=== PATIENT | female | born 1965 | race Caucasian/White ===

== ENCOUNTER 2020-07-20 15:00 | Emergency (ER) | payer OTHER ==
[~2020-07-20 15:00] MED LIST: ADVAIR 500-501 EACH INH; AMLODIPINE BESYL5 MG PO; ATORVASTATIN CA40 MG PO; BIOTIN2500 MCG PO; BUSPIRONE HCL15 MG PO; COLACE 100MG C100 MG PO; COMBIVENT RESPIM4 GM INH; DULOXETINE HCL60 MG PO; FENOFIBRATE160 MG PO; GLIMEPIRIDE4 MG PO; HYDROCHLOROTHIA25 MG PO; IBUPROFEN600 MG PO; JANUVIA100 MG PO; LISINOPRIL2.5 MG PO; NORCO 5-325 TA1 EACH PO; NORETHINDRONE AC5 MG PO; ONE A DAY VITAMIN PO; RANITIDINE HCL150 MG PO; SINGULAIR10 MG PO; SYMBICORT 16010.2 GM INH; TOPROL XL100 MG PO; VIT D3 PO; ZYRTEC10 MG PO; [UNRECOGNIZED DRUG - OTHER]
== END 2020-07-20 17:50 | disposition home or self-care (01) ==
LOC: ER1 15:00
DX: J20.9 Acute bronchitis, unspecified (principal); J06.9 Acute upper respiratory infection, unspecified; Z20.822 Contact with and (suspected) exposure to COVID-19
CPT/HCPCS: 87081; 87880; 99283; U0002

== ENCOUNTER → 2021-12-22 | Outpatient (CLI) | payer OTHER | LOC: KOH-I 12-09 10:15 | DX: R10.11 Right upper quadrant pain (principal); R10.13 Epigastric pain; R11.0 Nausea; K76.0 Fatty (change of) liver, not elsewhere classified | CPT/HCPCS: 76705 ==

== ENCOUNTER → 2022-01-14 | Outpatient (CLI) | payer OTHER | LOC: KOH-I 14:03 | DX: F17.210 Nicotine dependence, cigarettes, uncomplicated (principal) | CPT/HCPCS: 71271 ==